=== PATIENT | male | born 1965 | race Caucasian/White ===

== ENCOUNTER 2018-12-02 11:16 | Inpatient (IN) | payer MEDICAID ==
[~2018-12-02] VITALS: Ht 165.1 cm; Wt 82.6 kg
--- NOTE | 2018-12-02 11:55 | NUR ---
PT TAKEN TO ROOM 40 REPORT GIVEN TO CARISSA CAPUTO. 4 BAGS OF BELONGINGS IN LOCKER.
--- NOTE | 2018-12-02 11:55 | NUR ---
REPORT RECIEVED FROM UGO CAPUTO. PT TO CARD MONITOR, NIBP, CONT PULSE OX. 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
[2018-12-02] MEDS ORDERED: LORazepam 2 MG/ML, 1ML IVPush ONE ×2 (12:00→14:30)
[2018-12-02] MEDS ORDERED: SODIUM CHLORIDE 0.9% 1,000ML IVBOLUS ONE (12:00)
[2018-12-02] MEDS ORDERED: POTASSIUM CHLORIDE 20 MEQ, MAGNESIUM SULFATE 1 GM, FOLIC ACID 1 MG, THIAMINE 200 MG, MV... IV SCH (12:00)
[2018-12-02] MEDS ORDERED: LORazepam 2 MG/ML, 1ML ONE ×2 (12:09→14:45)
[2018-12-02 12:12] LABS: AMPHETAMINE SCREEN, URINE Negative (Negative); BARBITURATE SCREEN, URINE Negative (Negative); BENZODIAZEPINE SCREEN, URINE Negative (Negative); CANNABINOID SCREEN, URINE Negative (Negative); COCAINE SCREEN, URINE Negative (Negative); METHADONE SCREEN, URINE Negative (Negative); OPIATE SCREEN, URINE Negative (Negative)
--- NOTE | 2018-12-02 12:17 | NUR ---
PIV INITIATED, LABS DRAWN AND SENT. PT MEDICATED PER MAR
[2018-12-02 12:18] LABS: BASOPHILS # (AUTO) 0.02 x10^3/uL (0-0.1); BASOPHILS % (AUTO) 0 % (0-1); EOSINOPHILS # (AUTO) 0.13 x10^3/uL (0-0.4); EOSINOPHILS % (AUTO) 1 % (1-7); LYMPHOCYTES # (AUTO) 1.15 x10^3/uL (1-3.4); LYMPHOCYTES % (AUTO) 11 % (22-44); MD NO; MEAN CORPUSCULAR HEMOGLOBIN 31.3 pg (27.5-34.5); MEAN CORPUSCULAR HGB CONC 33.4 g/dL (33.2-36.2); MEAN CORPUSCULAR VOLUME 93.9 fL (81-97); MEAN PLATELET VOLUME 9.2 fL (7.4-10.4); MONOCYTES % (AUTO) 11 % (2-9); NEUTROPHILS # (AUTO) 7.98 x10^3/uL (1.8-6.8); NEUTROPHILS % (AUTO) 77 % (42-75); PLATELET COUNT 287 x10^3/uL (130-400); RED BLOOD COUNT 5.27 x10^6/uL (4.38-5.82); RED CELL DISTRIBUTION WIDTH 14.6 % (9.4-14.8)
--- NOTE | 2018-12-02 12:33 | NUR ---
SITTER IN PLACE WITH EYES ON PT.
[2018-12-02 12:35] LABS: ALANINE AMINOTRANSFERASE 84 U/L (12-78); ALBUMIN 3.8 g/dL (3.4-5.0); ANION GAP 16 mmol/L (5-15); CALCIUM 9.5 mg/dL (8.5-10.1); CHLORIDE 99 mmol/L (98-107); CREATININE 0.77 mg/dL (0.7-1.3)
[2018-12-02 12:37] LABS: SALICYLATE LEVEL < 1.7 mg/dL (2.8-20.0)
[2018-12-02 12:38] LABS: ALKALINE PHOSPHATASE 123 U/L (45-117); BILIRUBIN,TOTAL 1.8 mg/dL (0.2-1.0); TOTAL PROTEIN 7.3 g/dL (6.4-8.2)
--- NOTE | 2018-12-02 12:45 | NUR ---
GERARDO RN: WAYNEI CONTACTED TO INITIATE CONSULT. AWAITING CALL BACK AT THIS TIME
--- NOTE | 2018-12-02 12:55 | NUR ---
TASK RN: INFORMED PT HAS MEDICAID EXPANSION. INITIATED CONSULT WITH [facility]
--- NOTE | 2018-12-02 13:18 | NUR ---
PT RESTING ON ANTONIO [place]TH NOTED. SITTER IN PLACE, SUICIDE PRECAUTIONS IN PLACE
--- NOTE | 2018-12-02 13:33 | NUR ---
Call #3 placed to [facility] due to RN being unable to immediately give report & doctor hanging up quickly while on hold previous 2 times.
--- NOTE | 2018-12-02 13:40 | NUR ---
Waiting on 3E response regarding pt eval/acceptance to their floor.
--- NOTE | 2018-12-02 14:17 | NUR ---
PT RESTING ON [place] AT THIS TIME, NAD NOTED.
--- NOTE | 2018-12-02 14:42 | NUR ---
SPOKE WITH LENNIE, PT HAD STATED HE HAD A PLAN TO HANG HIMSELF TO [facility]. UTOX NEGATIVE, ETHANOL NEGATIVE. PER LENNIE PT PLACED ON LEGAL, HE IS TO ADMIT TO TELE FOR ETOH WITHDRAWL
--- NOTE | 2018-12-02 15:16 | NUR ---
PT RESTING ON GURNEYANTONIO NOTED, SITTER REMAINS. AWAITING BED PLACEMENT
--- NOTE | 2018-12-02 15:35 | NUR ---
REPORT GIVEN TO RECIEVING HARSHAL MACDONALD.
[2018-12-02] MEDS ORDERED: ACETAMINOPHEN 325 MG TABLET PO PRN (16:00)
[2018-12-02] MEDS ORDERED: CHLORDIAZEPOXIDE 25 MG CAPSULE PO PRN (16:00)
[2018-12-02] MEDS ORDERED: CHLORDIAZEPOXIDE 25 MG CAPSULE PO SCH (16:00)
[2018-12-02] MEDS ORDERED: LORazepam 2 MG/ML, 1ML IV PRN ×3 (16:00)
[2018-12-02] MEDS ORDERED: LORazepam 0.5MG TABLET PO PRN (16:00)
[2018-12-02] MEDS ORDERED: LABETALOL 5MG/ML, 20ML IVPush PRN (16:00)
[2018-12-02] MEDS ORDERED: PROMETHAZINE 25 MG/ML, 1ML IM PRN (16:00)
[2018-12-02] MEDS ORDERED: hydrALAzine 20 MG/ML, 1ML IVPush PRN (16:00)
[2018-12-02] MEDS ORDERED: ONDANSETRON 2MG/ML, 2ML IVPush PRN (16:00)
[2018-12-02] MEDS ORDERED: LORazepam 1MG TABLET PO PRN ×3 (16:00)
[2018-12-02 16:04] VITALS: BP 109/65
[2018-12-02 16:06] LABS: TROPONIN I < 0.015 ng/mL (0.000-0.045)
[2018-12-02] MEDS ORDERED: FLUO40CA9 PO (16:25)
[2018-12-02] MEDS ORDERED: CETI1TAB6 PO (17:01)
[2018-12-02] MEDS: HEPARIN 5,000 UNITS/ML, 1ML SQ SCH (17:07)
[2018-12-02] MEDS: NICOTINE 7 MG/24 HR PATCH.TD24 TD SCH (17:07)
[2018-12-02] MEDS: GUAIFENESIN 200 MG TABLET PO SCH ×2 (17:07→21:06)
[2018-12-02] MEDS: ALBUTEROL/IPRATROPIUM 2.5MG/0.5MG, 3 ML HHN SCH ×2 (17:10→19:42)
[2018-12-02 20:23] LABS: CLOSTRIDIUM DIFFICILE ANTIGEN NEGATIVE; CLOSTRIDIUM DIFFICILE TOXIN NEGATIVE (Negative)
[2018-12-02 20:32] VITALS: BP 131/76
[2018-12-02] MEDS: THIAMINE 100MG TABLET PO SCH (21:06)
[2018-12-02 22:19] LABS: TROPONIN I < 0.015 ng/mL (0.000-0.045)
[2018-12-03 01:31] VITALS: BP 119/75
[2018-12-03] MEDS: ALBUTEROL/IPRATROPIUM 2.5MG/0.5MG, 3 ML HHN SCH ×4 (03:00→19:20)
[2018-12-03 03:18] LABS: BASOPHILS # (AUTO) 0.04 x10^3/uL (0-0.1); BASOPHILS % (AUTO) 1 % (0-1); EOSINOPHILS # (AUTO) 0.56 x10^3/uL (0-0.4); EOSINOPHILS % (AUTO) 7 % (1-7); LYMPHOCYTES # (AUTO) 1.54 x10^3/uL (1-3.4); LYMPHOCYTES % (AUTO) 20 % (22-44); MD NO; MEAN CORPUSCULAR HEMOGLOBIN 32.1 pg (27.5-34.5); MEAN CORPUSCULAR HGB CONC 33.5 g/dL (33.2-36.2); MEAN CORPUSCULAR VOLUME 95.8 fL (81-97); MEAN PLATELET VOLUME 9.3 fL (7.4-10.4); MONOCYTES # (AUTO) 0.75 x10^3/uL (0.2-0.8); MONOCYTES % (AUTO) 10 % (2-9); NEUTROPHILS # (AUTO) 4.97 x10^3/uL (1.8-6.8); NEUTROPHILS % (AUTO) 63 % (42-75); PLATELET COUNT 237 x10^3/uL (130-400); RED BLOOD COUNT 4.68 x10^6/uL (4.38-5.82); RED CELL DISTRIBUTION WIDTH 15.1 % (9.4-14.8)
[2018-12-03 03:22] LABS: ALANINE AMINOTRANSFERASE 64 U/L (12-78); ANION GAP 11 mmol/L (5-15); CALCIUM 8.6 mg/dL (8.5-10.1); CHLORIDE 107 mmol/L (98-107)
[2018-12-03 03:27] LABS: ALKALINE PHOSPHATASE 93 U/L (45-117); BILIRUBIN,TOTAL 1.1 mg/dL (0.2-1.0); CREATININE 0.77 mg/dL (0.7-1.3); TOTAL PROTEIN 5.9 g/dL (6.4-8.2); TROPONIN I < 0.015 ng/mL (0.000-0.045)
[2018-12-03] MEDS: HEPARIN 5,000 UNITS/ML, 1ML SQ SCH (06:22)
[2018-12-03] MEDS: GUAIFENESIN 200 MG TABLET PO SCH ×4 (06:22→20:19)
[2018-12-03 07:30] VITALS: BP 121/81
[2018-12-03] MEDS ORDERED: LOPERAMIDE 2 MG CAPSULE PO PRN (08:30)
[2018-12-03] MEDS: POTASSIUM CHLORIDE 20 MEQ TAB.ER.PRT PO SCH ×2 (09:06→16:17)
[2018-12-03] MEDS: FOLIC ACID 1 MG TABLET PO SCH (09:06)
[2018-12-03] MEDS: THIAMINE 100MG TABLET PO SCH ×2 (09:06→20:19)
[2018-12-03] MEDS: MULTIVITAMIN 1 TABLET PO SCH (09:06)
[2018-12-03] MEDS: ENOXAPARIN 40 MG/0.4 ML SQ SCH (09:06)
[2018-12-03] MEDS: CHLORDIAZEPOXIDE 25 MG CAPSULE PO PRN ×2 (09:14→20:19)
[2018-12-03 12:01] VITALS: BP 119/77
[2018-12-03] MEDS: NICOTINE 7 MG/24 HR PATCH.TD24 TD SCH (16:17)
[2018-12-03 19:42] VITALS: BP 114/80
[2018-12-03] MEDS: DIVALPROEX 500 MG TAB.ER.24H PO SCH (20:19)
[2018-12-04 01:47] VITALS: BP 115/73
[2018-12-04] MEDS: ALBUTEROL/IPRATROPIUM 2.5MG/0.5MG, 3 ML HHN SCH ×4 (04:00→22:00)
[2018-12-04 05:22] LABS: ALBUMIN 3.2 g/dL (3.4-5.0); ANION GAP 8 mmol/L (5-15); CHLORIDE 106 mmol/L (98-107)
[2018-12-04] MEDS: GUAIFENESIN 200 MG TABLET PO SCH ×4 (05:24→20:40)
[2018-12-04 05:26] LABS: ALANINE AMINOTRANSFERASE 67 U/L (12-78); ALKALINE PHOSPHATASE 99 U/L (45-117); BILIRUBIN,TOTAL 0.8 mg/dL (0.2-1.0); CREATININE 0.76 mg/dL (0.7-1.3); TOTAL PROTEIN 6.5 g/dL (6.4-8.2)
[2018-12-04 06:32] VITALS: BP 117/78
[2018-12-04] MEDS: FLUOXETINE HCL 20 MG CAPSULE PO SCH (08:45)
[2018-12-04] MEDS: MULTIVITAMIN 1 TABLET PO SCH (08:45)
[2018-12-04] MEDS: ENOXAPARIN 40 MG/0.4 ML SQ SCH (08:45)
[2018-12-04] MEDS: POTASSIUM CHLORIDE 20 MEQ TAB.ER.PRT PO SCH (08:46)
[2018-12-04] MEDS: THIAMINE 100MG TABLET PO SCH ×2 (08:46→20:40)
[2018-12-04] MEDS: FOLIC ACID 1 MG TABLET PO SCH (08:46)
[2018-12-04] MEDS: DIVALPROEX 500 MG TAB.ER.24H PO SCH ×2 (08:46→20:40)
[2018-12-04] MEDS ORDERED: predniSONE 50MG TABLET PO SCH (09:00)
[2018-12-04 12:15] VITALS: BP 113/74
[2018-12-04] MEDS: NICOTINE 7 MG/24 HR PATCH.TD24 TD SCH (17:47)
[2018-12-04 20:24] VITALS: BP 111/76
[2018-12-05 00:44] VITALS: BP 113/75
[2018-12-05] MEDS: ALBUTEROL/IPRATROPIUM 2.5MG/0.5MG, 3 ML HHN SCH ×3 (03:00→14:10)
[2018-12-05] MEDS: GUAIFENESIN 200 MG TABLET PO SCH ×3 (06:11→16:44)
[2018-12-05 08:10] VITALS: BP 110/75
[2018-12-05] MEDS: FOLIC ACID 1 MG TABLET PO SCH (08:54)
[2018-12-05] MEDS: ENOXAPARIN 40 MG/0.4 ML SQ SCH (08:54)
[2018-12-05] MEDS: DIVALPROEX 500 MG TAB.ER.24H PO SCH (08:54)
[2018-12-05] MEDS: METOPROLOL TARTRATE 25 MG TABLET PO SCH ×2 (08:54→18:32)
[2018-12-05] MEDS: MULTIVITAMIN 1 TABLET PO SCH (08:55)
[2018-12-05] MEDS: FLUOXETINE HCL 20 MG CAPSULE PO SCH (08:55)
[2018-12-05] MEDS: POTASSIUM CHLORIDE 20 MEQ TAB.ER.PRT PO SCH (08:55)
[2018-12-05] MEDS: THIAMINE 100MG TABLET PO SCH (08:55)
[2018-12-05 12:45] VITALS: BP 111/78
[2018-12-05 16:19] VITALS: BP 114/78
[2018-12-05] MEDS: CHLORDIAZEPOXIDE 25 MG CAPSULE PO PRN (16:45)
[2018-12-05] MEDS: NICOTINE 7 MG/24 HR PATCH.TD24 TD SCH (16:47)
[2018-12-05 19:37] VITALS: BP 112/72
== END 2018-12-05 19:45 | DRG 433 ==
LOC: ED 12:20 → EDIP 15:11 → 4EST 15:58 → 2N 12-05 16:13
PROVIDERS: ADMIT Internal Medicine; ATTEND Internal Medicine
DX: K70.10 Alcoholic hepatitis without ascites (principal); J44.1 Chronic obstructive pulmonary disease with (acute) exacerbation; R45.851 Suicidal ideations; F10.230 Alcohol dependence with withdrawal, uncomplicated; F10.24 Alcohol dependence with alcohol-induced mood disorder; F39 Unspecified mood [affective] disorder; F17.200 Nicotine dependence, unspecified, uncomplicated; F15.10 Other stimulant abuse, uncomplicated; F32.9 Major depressive disorder, single episode, unspecified; E87.6 Hypokalemia; D72.829 Elevated white blood cell count, unspecified; F41.9 Anxiety disorder, unspecified; Z91.19 Patient's noncompliance with other medical treatment and regimen; Z82.0 Family history of epilepsy and other diseases of the nervous system
CPT/HCPCS: 36415; 99285; J7121; J7620; 71045; 80053; 80307; 83735; 84100; 84484; 85025; 87324; 93005; 94640; 96374; 96376; G0378; J1644; J1650; J3411; J3475; J3480; J2060; J7030; J7512

== ENCOUNTER 2019-05-19 09:36 | Inpatient (IN) | payer MEDICAID ==
[~2019-05-19] VITALS: Ht 165.1 cm; Wt 97.6 kg
[~2019-05-19 09:36] MED LIST: CETI1TAB6 PO; FLUO40CA9 PO
--- NOTE | 2019-05-19 09:54 | NUR ---
first contact with pt. pt C/O: short of breath for two weeks with symptoms beginning "like a flu". "I just completed Tamiflu, my breathing has gotten worse especially in the morning. I have COPD." pt's aox4. resps even and unlabored. bp/spo2 monitors in place. call light within reach.
[2019-05-19] MEDS ORDERED: methylPREDNISolone SOD SUCC 125 MG/2 ML ONE (10:24)
[2019-05-19] MEDS ORDERED: ALBUTEROL/IPRATROPIUM 2.5MG/0.5MG, 3 ML ONE (10:26)
[2019-05-19] MEDS: ALBUTEROL/IPRATROPIUM 2.5MG/0.5MG, 3 ML NPPB SCH ×3 (10:28→20:22)
[2019-05-19] MEDS ORDERED: methylPREDNISolone SOD SUCC 125 MG/2 ML IV ONE (10:30)
[2019-05-19 10:33] LABS: MEAN CORPUSCULAR HEMOGLOBIN 30.5 pg (27.5-34.5); MEAN CORPUSCULAR VOLUME 92.4 fL (81-97); MEAN PLATELET VOLUME 9.7 fL (7.4-10.4); PLATELET COUNT 299 x10^3/uL (130-400); RED BLOOD COUNT 5.15 x10^6/uL (4.38-5.82); RED CELL DISTRIBUTION WIDTH 15.2 % (9.4-14.8)
--- NOTE | 2019-05-19 10:42 | NUR ---
pt medicated per emar. pt tolerated well.
[2019-05-19 10:45] LABS: ALANINE AMINOTRANSFERASE 27 U/L (12-78); ALBUMIN 3.2 g/dL (3.4-5.0); ANION GAP 6 mmol/L (5-15); CALCIUM 8.4 mg/dL (8.5-10.1); CHLORIDE 107 mmol/L (98-107); CREATININE 1.26 mg/dL (0.7-1.3)
[2019-05-19 10:48] LABS: ALKALINE PHOSPHATASE 110 U/L (45-117); BILIRUBIN,TOTAL 0.2 mg/dL (0.2-1.0); TOTAL PROTEIN 6.7 g/dL (6.4-8.2)
[2019-05-19 11:01] LABS: BASOPHILS # (AUTO) 0.03 x10^3/uL (0-0.1); BASOPHILS % (AUTO) 0 % (0-1); EOSINOPHILS # (AUTO) 0.04 x10^3/uL (0-0.4); EOSINOPHILS % (AUTO) 0 % (1-7); LYMPHOCYTES # (AUTO) 1.93 x10^3/uL (1-3.4); LYMPHOCYTES % (AUTO) 11 % (22-44); MD SCAN; MONOCYTES # (AUTO) 0.67 x10^3/uL (0.2-0.8); MONOCYTES % (AUTO) 4 % (2-9); NEUTROPHILS # (AUTO) 15.61 x10^3/uL (1.8-6.8); NEUTROPHILS % (AUTO) 85 % (42-75)
--- NOTE | 2019-05-19 11:13 | NUR ---
PT AMB TO BR AND BACK TO ROOM WITH STEADY GAIT.
--- NOTE | 2019-05-19 11:16 | NUR ---
WARM BLANCKET GIVEN AT THIS TIME.
--- NOTE | 2019-05-19 11:49 | NUR ---
rt paged for one more treatment per [facility].
--- NOTE | 2019-05-19 12:33 | NUR ---
pt resting in [facility]. pt's aox4. resps even and unlabored. bp/spo2 monitors in place. call light within reach.
[2019-05-19] MEDS ORDERED: BUSP5TAB2 PO (13:19)
[2019-05-19] MEDS ORDERED: CARI3CAP PO (13:19)
[2019-05-19] MEDS ORDERED: GABA600T7 PO (13:20)
[2019-05-19] MEDS ORDERED: TRAZ-137 PO (13:20)
[2019-05-19] MEDS ORDERED: BENZ-17 PO (13:21)
[2019-05-19] MEDS ORDERED: ALBU0.63 NEB (13:22)
[2019-05-19] MEDS ORDERED: BUDE10.2 INH (13:22)
[2019-05-19] MEDS ORDERED: TIOT18CA INH (13:22)
--- NOTE | 2019-05-19 13:23 | NUR ---
pt resting in [facility]. pt's aox4. resps even and unlabored. bp/spo2 monitors in place. call light within reach.
--- NOTE | 2019-05-19 14:17 | NUR ---
REPORT GIVEN TO YOGESH CAPUTO. ALL QUESTIONS ANSWERED.
[2019-05-19 14:58] VITALS: BP 124/82
[2019-05-19] MEDS ORDERED: SODIUM CHLORIDE 0.9% 1,000 ML IV SCH (17:03)
[2019-05-19] MEDS ORDERED: ALBUTEROL/IPRATROPIUM 2.5MG/0.5MG, 3 ML HHN SCH (17:30)
[2019-05-19] MEDS ORDERED: ONDANSETRON 2MG/ML, 2ML IVPush PRN (17:30)
[2019-05-19] MEDS: ENOXAPARIN 40 MG/0.4 ML SQ SCH (17:30)
[2019-05-19] MEDS ORDERED: hydrALAzine 20 MG/ML, 1ML IVPush PRN (17:30)
[2019-05-19] MEDS ORDERED: LABETALOL 5MG/ML, 20ML IVPush PRN (17:30)
[2019-05-19] MEDS: methylPREDNISolone SOD SUCC 125 MG/2 ML IVPush SCH (17:51)
[2019-05-19] MEDS: GUAIFENESIN 200 MG TABLET PO SCH ×2 (17:51→20:44)
[2019-05-19] MEDS: DOXYCYCLINE 100 MG in DEXTROSE 5% 250 ML IV SCH (17:51)
[2019-05-19] MEDS: NICOTINE 7 MG/24 HR PATCH.TD24 TD SCH (17:52)
[2019-05-19 18:16] VITALS: BP 126/79
[2019-05-19 20:07] VITALS: BP 133/69
[2019-05-19] MEDS: BUDESONIDE 0.5 MG/2 ML INHA NPPB SCH (20:22)
[2019-05-19] MEDS: BUSPIRONE 5 MG TABLET PO SCH (20:44)
[2019-05-19] MEDS: CEFTRIAXONE PMX 1GM/50ML 50 ML IV SCH (20:44)
[2019-05-19 23:37] LABS: RAPID INFLUENZA A Negative (Negative); RAPID INFLUENZA B Negative (Negative)
[2019-05-20] MEDS: TRAZODONE 100MG TABLET PO SCH ×2 (00:04→21:27)
[2019-05-20] MEDS: methylPREDNISolone SOD SUCC 125 MG/2 ML IVPush SCH ×5 (00:08→23:30)
[2019-05-20 02:19] VITALS: BP 107/68
[2019-05-20] MEDS: ALBUTEROL/IPRATROPIUM 2.5MG/0.5MG, 3 ML NPPB SCH ×4 (03:18→21:06)
[2019-05-20 04:59] LABS: BASOPHILS % (AUTO) 0 % (0-1); EOSINOPHILS % (AUTO) 0 % (1-7); LYMPHOCYTES # (AUTO) 1.29 x10^3/uL (1-3.4); LYMPHOCYTES % (AUTO) 8 % (22-44); MD NO; MEAN CORPUSCULAR HEMOGLOBIN 30.5 pg (27.5-34.5); MEAN CORPUSCULAR HGB CONC 33.3 g/dL (33.2-36.2); MEAN CORPUSCULAR VOLUME 91.8 fL (81-97); MEAN PLATELET VOLUME 10.4 fL (7.4-10.4); MONOCYTES # (AUTO) 0.24 x10^3/uL (0.2-0.8); MONOCYTES % (AUTO) 2 % (2-9); NEUTROPHILS % (AUTO) 90 % (42-75); PLATELET COUNT 292 x10^3/uL (130-400); RED BLOOD COUNT 5.16 x10^6/uL (4.38-5.82); RED CELL DISTRIBUTION WIDTH 14.7 % (9.4-14.8)
[2019-05-20 05:14] LABS: ALBUMIN 3.1 g/dL (3.4-5.0); ANION GAP 7 mmol/L (5-15); CALCIUM 8.5 mg/dL (8.5-10.1); CHLORIDE 106 mmol/L (98-107)
[2019-05-20 05:18] LABS: ALANINE AMINOTRANSFERASE 25 U/L (12-78); ALKALINE PHOSPHATASE 103 U/L (45-117); BILIRUBIN,TOTAL 0.2 mg/dL (0.2-1.0); CREATININE 1.08 mg/dL (0.7-1.3); TOTAL PROTEIN 6.5 g/dL (6.4-8.2)
[2019-05-20] MEDS: DOXYCYCLINE 100 MG in DEXTROSE 5% 250 ML IV SCH ×2 (05:38→18:04)
[2019-05-20] MEDS: GUAIFENESIN 200 MG TABLET PO SCH ×4 (05:38→21:27)
[2019-05-20 07:04] VITALS: BP 125/80
[2019-05-20] MEDS: BUDESONIDE 0.5 MG/2 ML INHA NPPB SCH ×2 (07:15→21:07)
[2019-05-20] MEDS: BUSPIRONE 5 MG TABLET PO SCH ×3 (09:39→21:27)
[2019-05-20] MEDS: ACETAMINOPHEN 325 MG TABLET PO PRN ×2 (09:39→21:28)
[2019-05-20 12:40] VITALS: BP 132/81
[2019-05-20] MEDS: GABAPENTIN 300 MG CAPSULE PO SCH ×3 (14:06→21:30)
[2019-05-20] MEDS: NICOTINE 7 MG/24 HR PATCH.TD24 TD SCH (16:15)
[2019-05-20] MEDS: ENOXAPARIN 40 MG/0.4 ML SQ SCH (18:05)
[2019-05-20 19:48] VITALS: BP 133/69
[2019-05-20] MEDS: CEFTRIAXONE PMX 1GM/50ML 50 ML IV SCH (21:27)
[2019-05-21 01:54] VITALS: BP 128/70
[2019-05-21] MEDS: ALBUTEROL/IPRATROPIUM 2.5MG/0.5MG, 3 ML NPPB SCH ×4 (03:45→20:47)
[2019-05-21] MEDS: methylPREDNISolone SOD SUCC 125 MG/2 ML IVPush SCH ×3 (05:46→18:05)
[2019-05-21] MEDS: DOXYCYCLINE 100 MG in DEXTROSE 5% 250 ML IV SCH (05:47)
[2019-05-21] MEDS: GUAIFENESIN 200 MG TABLET PO SCH ×4 (06:11→21:54)
[2019-05-21 07:21] VITALS: BP 134/91
[2019-05-21] MEDS: BUDESONIDE 0.5 MG/2 ML INHA NPPB SCH ×2 (07:30→20:47)
[2019-05-21] MEDS: BUSPIRONE 5 MG TABLET PO SCH ×3 (08:28→21:54)
[2019-05-21] MEDS: GABAPENTIN 300 MG CAPSULE PO SCH ×3 (08:30→21:54)
[2019-05-21] MEDS: ACETAMINOPHEN 325 MG TABLET PO PRN (08:31)
[2019-05-21 12:57] VITALS: BP 129/77
[2019-05-21] MEDS: ENOXAPARIN 40 MG/0.4 ML SQ SCH (17:30)
[2019-05-21] MEDS: NICOTINE 7 MG/24 HR PATCH.TD24 TD SCH (18:05)
[2019-05-21 18:36] VITALS: BP 118/75
[2019-05-21] MEDS: TRAZODONE 100MG TABLET PO SCH (21:54)
[2019-05-21] MEDS: AMOXICILLIN/CLAV 875-125MG TABLET PO SCH (21:54)
[2019-05-22 00:12] VITALS: BP 128/81
[2019-05-22] MEDS: methylPREDNISolone SOD SUCC 125 MG/2 ML IVPush SCH ×3 (00:14→12:21)
[2019-05-22] MEDS: ALBUTEROL/IPRATROPIUM 2.5MG/0.5MG, 3 ML NPPB SCH ×3 (03:23→14:40)
[2019-05-22] MEDS: GUAIFENESIN 200 MG TABLET PO SCH ×3 (06:02→15:33)
[2019-05-22] MEDS: ACETAMINOPHEN 325 MG TABLET PO PRN (06:09)
[2019-05-22 07:58] VITALS: BP 120/76
[2019-05-22] MEDS: GABAPENTIN 300 MG CAPSULE PO SCH ×2 (09:06→15:33)
[2019-05-22] MEDS: AMOXICILLIN/CLAV 875-125MG TABLET PO SCH (09:06)
[2019-05-22] MEDS: BUSPIRONE 5 MG TABLET PO SCH ×2 (09:06→15:33)
[2019-05-22] MEDS: BUDESONIDE 0.5 MG/2 ML INHA NPPB SCH (10:25)
[2019-05-22 13:15] VITALS: BP 129/82
[2019-05-22] MEDS ORDERED: PRED20TA PO (14:18)
[2019-05-22] MEDS ORDERED: BUDE10.2 INH (14:18)
[2019-05-22] MEDS ORDERED: GABA300C10 PO (14:18)
[2019-05-22] MEDS ORDERED: AMOX1TAB12 PO (14:18)
== END 2019-05-22 15:55 | disposition home or self-care (01) | DRG 202 ==
LOC: ED 09:57 → 3N 14:28 → DCLOUNGE 05-22 15:47
PROVIDERS: ADMIT Internal Medicine; ATTEND Internal Medicine
DX: J20.9 Acute bronchitis, unspecified (principal); J44.0 Chronic obstructive pulmonary disease with (acute) lower respiratory infection; J44.1 Chronic obstructive pulmonary disease with (acute) exacerbation; F17.210 Nicotine dependence, cigarettes, uncomplicated; Z66 Do not resuscitate; R73.9 Hyperglycemia, unspecified; F32.9 Major depressive disorder, single episode, unspecified; T38.0X5A Adverse effect of glucocorticoids and synthetic analogues, initial encounter; Y92.89 Other specified places as the place of occurrence of the external cause; Z71.6 Tobacco abuse counseling
CPT/HCPCS: 36415; 84145; 87400; 96374; 99285; J7620; J7626; 71045; 71260; 80053; 85025; 87040; 87070; 87205; 93005; 94640; G0378; J0696; J1650; J7060; J2930; J7030

== ENCOUNTER 2019-06-24 22:00 | Emergency (ER) | payer MEDICAID ==
[~2019-06-24] VITALS: Ht 165.1 cm; Wt 100.0 kg
[~2019-06-24 22:00] MED LIST changes: +ALBU0.63 NEB; +AMOX1TAB12 PO; +BENZ-17 PO; +BUDE10.2 INH; +BUSP5TAB2 PO; +CARI3CAP PO; +GABA300C10 PO; +GABA600T7 PO; +PRED20TA PO; +TIOT18CA INH; +TRAZ-175 PO
--- NOTE | 2019-06-24 22:06 | NUR ---
PULSE OX 88%RA. O2 3LNC APPLIED. SATURATION INCREASED TO 93%.
--- NOTE | 2019-06-24 22:07 | NUR ---
POCKET KNIFE REMOVED FROM PT'S POCKET. WILL BE TAGGED AND REMOVED FOR SAFETY.
[2019-06-24 22:30] VITALS: BP 126/66
--- NOTE | 2019-06-24 22:46 | NUR ---
PT AMBULATORY TO & FROM [facility] BR W/OUT INCIDENT, GAIT STEADY.
[2019-06-24] MEDS ORDERED: PROP20TA PO (23:01)
[2019-06-24] MEDS ORDERED: GABA-826 PO (23:01)
[2019-06-24] MEDS ORDERED: TOPI25TA52 PO (23:01)
--- NOTE | 2019-06-24 23:01 | NUR ---
MED REC UPDATED USING EXTERNAL MED HX.
== END 2019-06-24 23:40 | disposition left against medical advice (07) ==
LOC: ED 23:35
DX: F10.129 Alcohol abuse with intoxication, unspecified (principal); F10.10 Alcohol abuse, uncomplicated; Z72.9 Problem related to lifestyle, unspecified; J44.9 Chronic obstructive pulmonary disease, unspecified; F17.200 Nicotine dependence, unspecified, uncomplicated; Y90.9 Presence of alcohol in blood, level not specified
CPT/HCPCS: 99283

== ENCOUNTER 2019-07-12 16:35 | Emergency (ER) | payer MEDICAID, MEDICARE ==
[~2019-07-12] VITALS: Ht 165.1 cm; Wt 95.5 kg
[~2019-07-12 16:35] MED LIST changes: +ACAM333T7 PO; +ARIP15TA3 PO; +ARIP5TAB13 PO; +BUDE0.5A11 INH; +DIVA125C2 PO; +ENOX40SY4 SQ; +FAMO-79 PO; +FAMO20TA7 PO; +GABA-826 PO; +GABA300S PO; +NICO-487 TD; +NICO1PAT27 TD; +NYST15PO9 TP; +PROP20TA PO; +SENN1TAB94 PO; +SIMV10TA18 PO; +TAMS-11 PO; +TOPI25TA52 PO; +[UNRECOGNIZED DRUG - CODE] TP
--- NOTE | 2019-07-12 16:58 | NUR ---
SITTER MONITORING FROM [facility]
[2019-07-12 17:36] LABS: BASOPHILS % (AUTO) 0 % (0-1); EOSINOPHILS # (AUTO) 0.01 x10^3/uL (0-0.4); EOSINOPHILS % (AUTO) 0 % (1-7); LYMPHOCYTES # (AUTO) 0.74 x10^3/uL (1-3.4); LYMPHOCYTES % (AUTO) 7 % (22-44); MD NO; MEAN CORPUSCULAR HEMOGLOBIN 30.3 pg (27.5-34.5); MEAN CORPUSCULAR HGB CONC 33.1 g/dL (33.2-36.2); MEAN CORPUSCULAR VOLUME 91.7 fL (81-97); MEAN PLATELET VOLUME 11.2 fL (7.4-10.4); MONOCYTES # (AUTO) 0.07 x10^3/uL (0.2-0.8); MONOCYTES % (AUTO) 1 % (2-9); NEUTROPHILS # (AUTO) 9.73 x10^3/uL (1.8-6.8); NEUTROPHILS % (AUTO) 92 % (42-75); PLATELET COUNT 247 x10^3/uL (130-400); RED BLOOD COUNT 4.88 x10^6/uL (4.38-5.82); RED CELL DISTRIBUTION WIDTH 14.5 % (9.4-14.8)
[2019-07-12 17:49] LABS: ALANINE AMINOTRANSFERASE 42 U/L (12-78); ALBUMIN 3.4 g/dL (3.4-5.0); ANION GAP 6 mmol/L (5-15); CALCIUM 9.4 mg/dL (8.5-10.1); CHLORIDE 109 mmol/L (98-107)
[2019-07-12 17:51] LABS: ALKALINE PHOSPHATASE 78 U/L (45-117); BILIRUBIN,TOTAL 0.2 mg/dL (0.2-1.0); CREATININE 0.99 mg/dL (0.7-1.3); SALICYLATE LEVEL < 1.7 mg/dL (2.8-20.0); TOTAL PROTEIN 7.8 g/dL (6.4-8.2)
--- NOTE | 2019-07-12 18:17 | NUR ---
PT ATE 100% MEAL PROVIDED, UP TO BATHROOM. ROOM SECURED. SITTER AT BEDSIDE
--- NOTE | 2019-07-12 18:18 | NUR ---
THROUGHPUT RN: CALL MADE TO [facility] ON BEHALF OF GINNY ARIAS TO SEE IF THEY WOULF TAKE PT BACK. PER RUSH AT [facility], THEY DID NOT FINISH THE PROCESSSO WHEN PT IS MEDICALLY CLEARED, THEY COULD RE-EVALUATE FOR ADMISSION.
[2019-07-12 18:19] LABS: AMPHETAMINE SCREEN, URINE Negative (Negative); BARBITURATE SCREEN, URINE Positive (Negative); BENZODIAZEPINE SCREEN, URINE Negative (Negative); CANNABINOID SCREEN, URINE Negative (Negative); COCAINE SCREEN, URINE Negative (Negative); METHADONE SCREEN, URINE Negative (Negative); OPIATE SCREEN, URINE Negative (Negative)
--- NOTE | 2019-07-12 18:57 | NUR ---
REPORT FROM QUINCY CAPUTO, ASSUMING CARE OF PT AT THIS TIME. PT SLEEPING ON JODEE LUEVANO SITTER IN DIRECT LINE OF SIGHT FOR MONITORING AND SAFETY
[2019-07-12] MEDS ORDERED: ARIPIPRAZOLE 5 MG TABLET ONE (20:14)
[2019-07-12] MEDS: ARIPIPRAZOLE 5 MG TABLET PO SCH (20:30)
--- NOTE | 2019-07-12 20:37 | NUR ---
PT MEDICATED PER JUL, HOSPITAL BED REQ
[2019-07-12] MEDS ORDERED: TRAZODONE 100MG TABLET PO PRN (21:00)
[2019-07-12] MEDS: BUSPIRONE 5 MG TABLET PO SCH (21:51)
--- NOTE | 2019-07-12 21:59 | NUR ---
PT MEDICATED, PT NOW RESTING ON HOSPITAL BED. PT REMAINS AGREEABLE TO POC AND POLITE TO NURSING STAFF. SITTER IN [facility] FOR MONITORING AND SAFETY
--- NOTE | 2019-07-12 23:44 | NUR ---
PT RESTING ON HOSPITAL BED, LIGHTS DIMMED FOR COMFORT, NO NEEDS AT THIS TIME
--- NOTE | 2019-07-13 01:33 | NUR ---
PT RESTING QUIETLY, SITTER OUTSIDE ROOM FOR PT SAFETY.
--- NOTE | 2019-07-13 02:05 | NUR ---
PT RESTING EYES CLOSED NO NEEDS AT THIS TIME
--- NOTE | 2019-07-13 03:15 | NUR ---
PT RESTING ON HOSPITAL BED EYES CLOSED ANTONION, SITTER NEARBY
--- NOTE | 2019-07-13 04:09 | NUR ---
PT RESTING ON HOSPITAL BED, SITTER IN PLACE AT THIS TIME
--- NOTE | 2019-07-13 05:48 | NUR ---
pt resting on hospital bed watching tv and dozing, sitter still in place
[2019-07-13 06:41] VITALS: BP 96/63
--- NOTE | 2019-07-13 07:09 | NUR ---
REPORT RECIEVED FROM CLAIR RN, ASSUMED CARE OF PT. PT RESTING ON HOSPITAL BED AT THIS TIME, VISIBLE CHEST RISE AND FALL NOTED. SI PRECAUTIONS OBSERVED
[2019-07-13] MEDS ORDERED: ARIPIPRAZOLE 5 MG TABLET ONE (07:18)
[2019-07-13] MEDS: ARIPIPRAZOLE 5 MG TABLET PO SCH (08:00)
[2019-07-13] MEDS: BUSPIRONE 5 MG TABLET PO SCH (08:00)
--- NOTE | 2019-07-13 08:20 | NUR ---
PT GIVEN MEAL TRAY, MEDICATED PER MAR
--- NOTE | 2019-07-13 09:47 | NUR ---
PT RESTING ON BED, VISIBLE CHEST RISE AND FALL NOTED. SI PRECAUTIONS REMAIN IN PLACE.
--- NOTE | 2019-07-13 09:50 | NUR ---
Patient over 51 with Medicaid formerly [facility] [employer] so packet faxed to Senior Sharla, GERMAN, MELISSA and NNAMCLARK.
--- NOTE | 2019-07-13 10:46 | NUR ---
REPORT CALLED TO RECIERASTA CAPUTO AT [facility]
== END 2019-07-13 12:51 ==
LOC: MERGE 21:38 → ED 21:38
DX: R45.851 Suicidal ideations (principal); T42.6X5A Adverse effect of other antiepileptic and sedative-hypnotic drugs, initial encounter; J44.9 Chronic obstructive pulmonary disease, unspecified; F32.9 Major depressive disorder, single episode, unspecified; Y92.9 Unspecified place or not applicable
CPT/HCPCS: 36415; 80053; 80307; 85025; 99285